=== PATIENT | male | born 1980 | race Caucasian/White ===

== ENCOUNTER 2022-04-25 17:42 | Observation (INO) | payer OTHER ==
[2022-04-25 18:18] LABS: CHLORIDE,CL 106 mEq/L (98-106); SODIUM,NA 142 mEq/L (136-145)
[2022-04-25 18:19] LABS: ESTIMATED GFR 78 mL/min (>=60)
[2022-04-25] MEDS ORDERED: Sodium Chloride 0.9% 1,000 ML IV ONE ×2 (18:21→19:55)
[2022-04-25] MEDS ORDERED: fentaNYL 50 MCG/ML SDV ONE (19:02)
[2022-04-25] MEDS ORDERED: Diphtheria,Pertussis(Acell),Tetanus Vaccine 0.5 ML Syringe IM ONE (19:02)
[2022-04-25] MEDS ORDERED: Aluminum Hydroxide/Magnesium Hydroxide/Simethicone Susp 30 ML Cup PO PRN (20:48)
[2022-04-25] MEDS ORDERED: Docusate Sodium 100 MG Cap PO PRN (20:48)
[2022-04-25] MEDS: fentaNYL 50 MCG/ML SDV IVPUSH PRN (22:38)
[2022-04-25] MEDS: Lisinopril 20 MG Tab PO SCH (22:38)
[2022-04-26] MEDS ORDERED: Nicotine 21 MG/24 Hr Patch TRDERM ONE (01:45)
[2022-04-26] MEDS ORDERED: Nicotine 21 MG/24 Hr Patch TRDERM SCH ×2 (01:45→21:00)
[2022-04-26] MEDS: Acetaminophen 325 MG Tab PO PRN ×2 (01:49→15:08)
[2022-04-26 02:00] LABS: AMPHETAMINES,URINE POSITIVE (NEGATIVE); BARBITURATES,URINE NEGATIVE (NEGATIVE); BENZODIAZEPINE,URINE NEGATIVE (NEGATIVE); MDMA (ECSTASY), URINE POSITIVE (NEGATIVE); METHADONE,URINE NEGATIVE (NEGATIVE); METHAMPHETAMINES,URINE POSITIVE (NEGATIVE); OPIATES,URINE NEGATIVE (NEGATIVE); OXYCODONE,URINE NEGATIVE (NEGATIVE); PHENCYCLIDINE,URINE NEGATIVE (NEGATIVE); TCA,URINE NEGATIVE (NEGATIVE)
[2022-04-26] MEDS ORDERED: Iopamidol 755 Mg/ML 100 ML Bottle IVPUSH ONE (07:15)
[2022-04-26] MEDS: Lisinopril 20 MG Tab PO SCH (07:45)
[2022-04-26] MEDS: fentaNYL 50 MCG/ML SDV IVPUSH PRN (11:23)
== END 2022-04-26 16:22 | disposition home or self-care (01) ==
LOC: CC.ED 17:42 → CC.MS 20:48 → CC.ED 20:52 → UNDOADMOB 20:52 → CC.MS 20:52
PROVIDERS: ADMIT Nurse Practitioner Family; ATTEND Nurse Practitioner Family
DX: S32.019A Unspecified fracture of first lumbar vertebra, initial encounter for closed fracture (principal); S90.02XA Contusion of left ankle, initial encounter; Z91.030 Bee allergy status
CPT/HCPCS: 36415; 70450; 71250; 72125; 72148; 73610-LT; 74176; 74177; 80048; 80053; 80305-QW; 80307; 81001; 81003; 83735; 85025; 87086; 87088; 87186; 96360; 96361; 96374; 96376; 99217; 99220; 99285-25; A9270-GY; G0378; J3010; J7030; Q9967